=== PATIENT | female | born 1985 | race Caucasian/White ===

== ENCOUNTER 2024-09-18 00:05 | Inpatient (IN) | payer BC ==
[2024-09-18] VITALS (7 sets, daily range): BP systolic 106–137; BP diastolic 53–85; PULSE 62–80; RESP 16–20; TEMP 97.5–98.7; O2SAT 93–100
[~2024-09-18] VITALS: Ht 154.9 cm; Wt 110.0 kg
--- NOTE | 2024-09-18 01:28 | DVHHPRES ---
History of Present Illness Resident Creating Document: MATEUS CHRISTIAN RESIDENT History of Present Illness patient is 38 years old female with past medical history of cholecystectomy was admitted to the [facility] for abdominal pain. As per documentation from the [facility] patient was admitted to the hospital due to abdominal pain that started 1 week before admission. Patient describes the pain as sharp, usually postprandial, 2-3 hours after eating but later on it was right after eating meals. Pain radiated to the back and to bilateral shoulders. Patient also reported vomiting, watery, food content,no blood. Patient also reported having bowel movement on the day of admission. On 09/17/2024 blood workup revealed WBC 9.6, hemoglobin 13, platelet 265, sodium 135, potassium 4, creatinine 0.72, blood sugar 147, bilirubin 2.9, AST 180, ALT 232, alkaline phosphatase 375, Lipase 52.. Urinalysis negative for UTI. Prior admission patient also was seen at the ER day before and found to have transaminitis and ultrasound revealed no CBD blockage. Prior to 1 week before admission bilirubin was 1.9. As per physician document patient was treated for possible cholangitis with antibiotic piperacillin/tazobactam. CT Abdomen & pelvis revealed small hiatal hernia, no acute bowel obstruction or appendicitis/diverticulitis. On Admission today patient reported that she had abdominal pain for 7 days but it got worse on Friday, crampy in nature, 10/10 in severity, increased with taking food, relieved with empty stomach, radiating to the back and shoulder. Patient also endorsed vomiting which was mainly watery content., no blood. Last vomiting was yesterday at 10:00 a.m.. Patient denied any fever, chest pain, shortness of breath, dysuria/diarrhea/acute joint pain or swelling, dysarthria/change in vision or vertigo. Initial lab workup revealed WBC 7.7, hemoglobin 12.0, platelet 235, serum creatinine 176, serum glucose 128, HbA1c 6.5, total bilirubin 2.4, AST 255, ALT 255, alkaline phosphatase 366, TSH 1.51, lipase 36. Past Medical History History of cholecystectomy Family History Mom had thyroid cancer, dad had liver failure Past Social History Patient reports occasional alcoholic, denies smoking or drug abuse, lives at home Review of Systems Review of Systems Allergy- NKDA Personal History/ Social History- Patient was seen today at the bedside. Cardiovascular- deny acute chest pain or shortness of breath or cough or palpitation Respiratory- denies cough or short of breath or wheezing Musculoskeletal-denies acute joint swelling or tenderness or redness Neurological- denies acute dysarthria, dysphagia, change in vision Psychiatry- denies depression or SI or HI Skin- denies acute rash or purpura Allergies: Coded Allergies: NO KNOWN ALLERGIES (Unverified , 09/18/24) Exam Exam General examination- awake, alert, conversant, cooperative HEENT- PEERLA, no acute nasal discharge Cardiovascular- S1-S2 audible, rate and rhythm regular, no murmur Respiratory- CTAB, no wheeze or rhonchi Gastrointestinal-nontender, bowel sound+. Nondistended Musculoskeletal-no acute joint swelling or tenderness or redness# Lower extremity- no leg edema Neurological- cranial nerves intact, no acute dysarthria or dysphagia Psychiatry- denies depression or SI or HI Skin- no acute rash or purpura Assessment/Plan Assessment/Plan #Suspected cholangitis -at [facility] on 09/17/2024- bilirubin 2.9, AST 180, ALT 232, alkaline phosphatase 375, Lipase 52. --at [facility] on 09/18/2024 total bilirubin 2.4, AST 255, ALT 255, alkaline phosphatase 366 -CT abdomen hiatal hernia -continue Zosyn 3.37 5 g IV q.6h -NPO until further order -continue lactate Ringer solution 100 mL/hour -monitor vital #Suspected pancreatitis/gastritis -continue pantoprazole 40 mg IV b.i.d. -monitor vitals #Transaminitis -on 09/18/2024 total bilirubin 2.4, AST 255, ALT 255, alkaline phosphatase 366 -monitor CMP -pending hepatic panel #New onset diabetes mellitus type, -HGB A1c 6.5 -insulin sliding scale as prescribed #Morbide obesity, BMI 46.1 -patient was counseled about weight reduction, healthy diet, physical activity Goals of care/advance care planning; FULL CODE; discussed with the patient >15 minutes PUD prophylaxis: Pantoprazole DVT prophylaxis: Plan discussed with Dr. Joe, nursing staff, patient Total time spent on patient evaluation, chart review, assessment and plan, discussion discussion >30 minutes Plan discussed with: Patient Plan discussed with: Patient, Other (RN) MATEUS CHRISTIAN RESIDENT Sep 18, 2024 01:28
[2024-09-18] MEDS ORDERED: MORPHINE SULFATE INJ 2 MG/ml SYRG IV PRN (01:45)
[2024-09-18] MEDS ORDERED: SODIUM CHLORIDE 0.9% 1,000 ML IV SCH (01:45)
[2024-09-18] MEDS ORDERED: NITROGLYCERIN 0.4 MG SL TAB SL PRN (01:45)
[2024-09-18] MEDS ORDERED: ONDANSETRON HCL 4 MG/2 ML VIAL IV PRN (01:45)
[2024-09-18 03:13] LABS: Basophils # (auto) 0 10 ^3/uL (0-0.2); Basophils % (auto) 0.4 % (0.0-2.0); Eosinophils # (auto) 0.1 10 ^3/uL (0-0.8); Eosinophils % (auto) 1.1 % (0.0-7.0); Hematocrit 35.2 % (36.0-46.0); Lymphocytes # (auto) 1.5 10 ^3/uL (0.4-5.4); Lymphocytes % (auto) 19.5 % (10.0-50.0); Mean Corpuscular Hemoglobin 28.3 pg (28.0-32.0); Mean Corpuscular Volume 83.4 fL (80.0-100.0); Monocytes # (auto) 0.6 10 ^3/uL (0-1.3); Monocytes % (auto) 8.1 % (0.0-12.0); Neutrophils # (auto) 5.4 10 ^3/uL (1.6-8.6); Neutrophils % (auto) 70.9 % (37.0-80.0); Platelet Count (auto) 235 10^3/uL (140-450); Red Blood Cells 4.22 10^6/uL (4.0-5.20); Red Cell Distribution Width 16.7 % (11.8-14.3); White Blood Cell 7.7 10^3/uL (4.4-10.8)
[2024-09-18 03:52] LABS: Albumin 4.4 g/dL (3.2-4.8); Anion Gap 8 (5-15); BUN/Creatinine Ratio 10.5 (10.0-20.0); Blood Alcohol < 3.0 mg/dL (<10); Carbon Dioxide 29 mmol/L (20-31); Chloride 104 mmol/L (98-107); Magnesium 2.2 mg/dL (1.6-2.6); Potassium 3.9 mmol/L (3.5-5.1); Sodium 141 mmol/L (136-145)
[2024-09-18 03:53] LABS: Total Protein 7.2 g/dL (5.7-8.2)
[2024-09-18 03:54] LABS: Alanine Aminotransferase 255 U/L (7-40); Alkaline Phosphatase 366 U/L (46-116); Aspartate Aminotransferase 255 U/L (13-40); Bilirubin, Total 2.4 mg/dL (0.2-1.0); Blood Urea Nitrogen 8 mg/dL (9-23); Glucose 128 mg/dL (74-106)
[2024-09-18] MEDS ORDERED: PNEUMOCOCCAL VACC POLYS 25 MCG/0.5 ML VIAL IM SCH (05:45)
[2024-09-18] MEDS: D5W/SOD CHLO 0.9% 1,000 ML IV SCH (06:04)
[2024-09-18] MEDS: PIPERACILLIN-TAZOB 3.375GM 100 ML IV ONE (06:05)
[2024-09-18] MEDS ORDERED: DEXTROSE (50%) 50ML SYRG IV PRN (06:45)
[2024-09-18 07:10] LABS: Bilirubin, Direct 1.2 mg/dL (<0.3)
[2024-09-18 07:18] LABS: CRP High Sensitivity 0.91 mg/dL (<1.0)
[2024-09-18] MEDS: ACCU-CHEK COMFORT CURVE STRIP VI SCH (07:57)
[2024-09-18] MEDS: InsuLIN REG 1unit/0.01ml Soln (100units/ml) SC SCH (08:00)
[2024-09-18] MEDS: LACTATED RINGER'S 1,000 ML IV SCH (08:05)
[2024-09-18] MEDS: PANTOPRAZOLE 40 MG/10 ML VIAL INJ IV SCH (09:06)
[2024-09-18] MEDS: MORPHINE SULFATE INJ 2 MG/ml SYRG IV PRN (10:35)
[2024-09-18] MEDS: ONDANSETRON HCL 4 MG/2 ML VIAL IV PRN (10:39)
[2024-09-18 10:57] LABS: Albumin 4.6 g/dL (3.2-4.8); Total Protein 7.6 g/dL (5.7-8.2)
[2024-09-18 10:58] LABS: Bilirubin, Direct 1.1 mg/dL (<0.3); Bilirubin, Total 2.5 mg/dL (0.2-1.0)
[2024-09-18 11:39] LABS: Erythrocyte Sedimentation Rate 41 mm/hr (0-20)
--- NOTE | 2024-09-18 12:07 | DVHPNRES ---
Progress Note Date Seen: Sep 18, 2024 Resident Creating Document: CRISTOFER CENTENO RESIDENT Medical Necessity Reason Pt with a Central, PICC or Fol: No Medical Necessity Reason Right abdominal pain associated with food nausea and vomiting Subjective Review of Systems This is a 38 female with a past medical history significant for cholecystectomy in 2018 presented to the ED with right quadrant pain of 1 week's duration. According to the patient she has been experiencing the pain in the right upper abdomen that has been intermittent however since last Friday however it became so severe yesterday September prompting her to visit the ED. Patient initially presented to [facility] however she was referred to [facility] because her primary doctor ( Dr. Garcia) is contracted with [facility]. Patient described the pain as sharp radiating to her back and to the shoulders bilaterally and it usually 2-3 hours postprandial. However, on Friday09/17/2024, the pain came on immediately after eating and it was consistent and unrelenting. it was associated with nausea and an episode of vomiting thus prompting her to go to the ED. Patient denied fever, chills, any possibility ingesting uncooked food or raw meals, , medication overdose or excessive alcohol consumption. In the ED, initial blood work showed Initial lab workup revealed WBC 7.7, hemoglobin 12.0, platelet 235, serum creatinine 176, serum glucose 128, HbA1c 6.5, total bilirubin 2.4, AST 255, ALT 255, alkaline phosphatase 366, TSH 1.51, lipase 36. Review of systems Past Medical History History of cholecystectomy Family History Mom had thyroid cancer, dad had liver failure Past Social History Patient reports occasional alcoholic, denies smoking or drug abuse, lives at home Objective vital signs Vital Sign Date Time Temp Pulse Resp B/P (MAP) Pulse Ox O2 Delivery O2 Flow Rate FiO2 09/18/24 10:35 67 18 106/53 09/18/24 08:54 98.4 100 98.4 09/18/24 08:00 Room Air* 0 21 Total Intake and Output 09/17/24 09/17/24 09/18/24 15:00 23:00 07:00 Intake Total 0 ml Balance 0 ml medications Current Medications Medications Dose Ordered Sig/Vianney Route Start Time Stop Time Status Last Admin Dose Admin Acetaminophen 650 mg Q6HP PRN PO 09/18/24 01:45 Morphine Sulfate 2 mg Q4HPRN PRN IV 09/18/24 01:45 09/18/24 10:35 2 MG Nitroglycerin 0.4 mg Q5MINP PRN SL 09/18/24 01:45 Morphine Sulfate 2 mg Q30M PRN IV 09/18/24 01:45 Pantoprazole Sodium 40 mg BID IV 09/18/24 10:00 09/18/24 09:06 40 MG Ondansetron HCl 4 mg Q4HPRN PRN IV 09/18/24 01:45 09/18/24 10:39 4 MG Piperacillin Sod/ Tazobactam Sod 100 ml @ 25 mls/hr Q6HR IV 09/18/24 12:00 Pneumococcal Polyvalent Vaccine 25 mcg ONCE IM 09/18/24 05:45 Cancel Lactated Ringer's 1,000 ml @ 100 mls/hr Q10H IV 09/18/24 06:30 09/18/24 08:05 100 MLS/HR Diagnostic Test (Pha) 1 strip ACHS 09/18/24 07:00 09/18/24 07:57 1 STRIP Insulin Human Regular ACHS SC 09/18/24 07:00 09/18/24 08:00 2 UNITS Dextrose 50 ml UD PRN IV 09/18/24 06:45 Examination General examination- morbidly obese female, not in acute distress,with a tinge of scleral icterus HEENT: PEERLA, no acute nasal discharge Chest: S1-S2 audible, rate and rhythm regular, no murmur Lung: CTAB, no wheeze or rhonchi Abdomen: surgical scar in the right upper quadrant from the cholecystectomy, distend, BS+, tenderness in right quadrant: no organomegaly Musculoskeletal: no acute joint swelling or tenderness Lower extremity: no leg edema Neurological: cranial nerves intact, no acute dysarthria or dysphagia Psychiatry-- Normal mood and affect Skin- no acute rash or purpura laboratory and microbiology Laboratory Tests 09/18/24 02:14 Test 09/18/24 02:14 Range/Units Serum Glucose 128 H 74-106 mg/dL Labs and/or images reviewed: Labs reviewed by me, Image(s) reviewed by me Problem List/Assessment/Plan Problem List/Assessment/Plan Right upper quadrant pain with transaminitis --> History of cholecystectomy in 2019 -->Drea 2.4-->2.5 --> Rule out strictures vs choledocholithiasis vs tumors --> Protonix --> Get MRCP ---> Surgical consult ?? Possible Cholangitis --> But no fevers, WBCs --> elevated liver enzymes --> Continue Zosyn for now New onset diabetes mellitus type 2 --> hemoglobin A1c: 6.5 % --> Lifestyle modification discussed Morbid obesity, BMI 46.1 --->patient was counseled about weight reduction, healthy diet, physical activity Code status: Full Goal of care discussed for 20 minutes Case and plan discussed with Dr. Tristan Plan discussed with: Patient, Other (Nurse) Addendum Addendum Addendum I was physically present for the miranda portions of the service provided to patient by THE RESIDENT. I have reviewed the documentation, discussed the case with resident and agree with the resident's documentation except as noted. Also the patient's clinical case was discussed with the patient's nurse. This medical document was created using an electronic medical record system with computerized dictation system. Although this document has been carefully reviewed, there might still be some phonetic and typographical errors. These areas are purely typographical due to imperfections of the software programs, and do not reflect any compromise in the patient's medical care. Late signature. Date of Service: Sep 18, 2024 Billing Provider: SAMEER TRISTAN MD Common Visit Codes: [id number] INP/OBS CARE(HIGH) Secondary Visit Codes: [id number] CARE PLAN 30 MINUTES (20 minutes) CRISTOFER CENTENO RESIDENT Sep 18, 2024 12:07 SAMEER TRISTAN MD Sep 20, 2024 04:34
[2024-09-18] MEDS: PIPERACILLIN-TAZOB 3.375GM 100 ML IV SCH (12:35)
--- NOTE | 2024-09-18 21:11 | DVHINCON2 ---
DATE OF CONSULTATION: 09/18/2024 REQUESTING PROVIDER: Dr. Can CONSULTING PHYSICIAN: Antonio Estrada MD REASON FOR CONSULTATION: Elevated LFTs, rule out cholangitis. HISTORY OF PRESENT ILLNESS: The patient is a 38-year-old female who went to the Emergency Department of [facility] with chief complaint of right upper quadrant abdominal pain. Initially stated it is mostly postprandial; however, she has pain without eating. Admitted to icteric sclerae, jaundice and choluria. Denies fevers, chills, hemoptysis, hematemesis, bilious emesis, chest pain, shortness of breath, unintentional weight loss, night sweats, melena or hematochezia. PAST MEDICAL HISTORY: Significant for morbid obesity. PAST SURGICAL HISTORY: , bilateral tubal ligation and laparoscopic converted to open cholecystectomy. MEDICATIONS: Denies. ALLERGIES: No known drug allergies. SOCIAL HISTORY: Denies smoking cigarettes, drug use, marijuana use or vaping. Admits to occasional use of alcohol. FAMILY HISTORY: Noncontributory. REVIEW OF SYSTEMS: NEUROLOGIC: Negative. PSYCHIATRIC: Negative. ENDOCRINE: Negative. ENT: As above. CARDIOVASCULAR: Negative. PULMONARY: Negative. GASTROINTESTINAL: As above. GENITOURINARY: As above. HEME/ID: Negative. LYMPHATICS: Negative. MUSCULOSKELETAL: Negative. SKIN: As above. PHYSICAL EXAMINATION: GENERAL: She is lying comfortably in bed, calm, pleasant and in no distress. She is morbidly obese. She is afebrile with stable vital signs. NEUROLOGIC: Grossly intact, alert, awake, oriented x3. HEAD, EARS, EYES, NOSE AND THROAT: Normocephalic. Pupils equally round. Extraocular muscles intact. Mild icteric sclerae. Trachea is midline. HEART: Normal heart rate and blood pressure. LUNGS: Effortless breathing. Normal oxygen saturation and respiratory rate. ABDOMEN: Soft, morbidly obese, nondistended with very minimal epigastric and right upper quadrant tenderness. No peritoneal signs, rebound. Nieto sign negative. Unsightly, very large right upper quadrant/subcostal scar. No palpable masses, hernias or visceromegaly. Body habitus hinders examination. EXTREMITIES: No edema or tenderness. LABORATORY DATA: Review of her labs demonstrated white blood cell count 7.7, hemoglobin 12, hematocrit 35, platelets 235. Chemistry essentially unremarkable with exception of glucose 128. Elevated LFTs. Ultrasound Rafael Capo reviewed. Evidence of cholecystectomy. Common bile duct measured 5.[address] scan did not reveal any acute inflammatory changes, status post cholecystectomy. ASSESSMENT: A 38-year-old female with right upper quadrant abdominal pain and elevated LFTs. Doubt cholangitis. PLANS AND RECOMMENDATIONS: I had a very lengthy discussion with the patient. I have recommended MRCP with and without contrast to rule out choledocholithiasis, stricture, neoplasm. If no evidence of obstructive disease, patient will require endoscopic ultrasound, which is not available in the area. The patient will have to be transferred to a tertiary care facility. If obstructive process is documented, patient will require an ERCP, therefore, will have to be transferred to a facility where ERCP is provided. Recommend empiric antibiotic coverage. DVT and GI prophylaxis. The patient may resume a diet after MRCP unless obstructive disease is identified. No surgical intervention is indicated or warranted at this time. Thank you for allowing me to participate in the care of your patient. No surgical intervention is anticipated. I will follow the patient periodically. MD TERESA Melvin/ANNALEE/JORGE TID: [id number] RECEIPT: [id number] MTDIvonne
[2024-09-19 01:00] VITALS: BP 116/57; PULSE 70; RESP 20; TEMP 97.9; O2SAT 93
[2024-09-19 05:00] VITALS: BP 105/48; PULSE 63; RESP 18; TEMP 97.9; O2SAT 89
[2024-09-19 06:09] LABS: Albumin 4.3 g/dL (3.2-4.8); Anion Gap 11 (5-15); BUN/Creatinine Ratio 16.2 (10.0-20.0); Blood Urea Nitrogen 11 mg/dL (9-23); Calcium 9.6 mg/dL (8.7-10.4); Carbon Dioxide 24 mmol/L (20-31); Chloride 105 mmol/L (98-107); Glucose 93 mg/dL (74-106); Potassium 3.8 mmol/L (3.5-5.1); Sodium 140 mmol/L (136-145)
[2024-09-19 06:10] LABS: Basophils # (auto) 0 10 ^3/uL (0-0.2); Basophils % (auto) 0.6 % (0.0-2.0); Eosinophils # (auto) 0.2 10 ^3/uL (0-0.8); Hematocrit 36.3 % (36.0-46.0); Hemoglobin 12.1 g/dL (12.2-16.2); Lymphocytes % (auto) 24.4 % (10.0-50.0); Mean Corpuscular Hemoglobin 28.4 pg (28.0-32.0); Mean Corpuscular Hgb Conc. 33.2 g/dL (32.0-36.0); Mean Corpuscular Volume 85.3 fL (80.0-100.0); Monocytes # (auto) 0.5 10 ^3/uL (0-1.3); Monocytes % (auto) 6.3 % (0.0-12.0); Neutrophils # (auto) 5.4 10 ^3/uL (1.6-8.6); Neutrophils % (auto) 66.7 % (37.0-80.0); Nucleated Red Blood Cells % 0.2 %; Platelet Count (auto) 221 10^3/uL (140-450); Red Blood Cells 4.25 10^6/uL (4.0-5.20); Red Cell Distribution Width 17.4 % (11.8-14.3); Total Protein 7.2 g/dL (5.7-8.2)
[2024-09-19 06:19] LABS: Alanine Aminotransferase 175 U/L (7-40); Alkaline Phosphatase 330 U/L (46-116); Aspartate Aminotransferase 71 U/L (13-40); Bilirubin, Total 1.8 mg/dL (0.2-1.0)
--- NOTE | 2024-09-19 07:55 | DVHPN2 ---
Progress Note Date Seen: Sep 19, 2024 Has the PT tested + for MRSA If YES, has PT been informed?: No Medical Necessity Reason Pt with a Central, PICC or Fol: No Subjective Review of Systems Pt feels well. Only complains of mild pressure in epigastric region. Objective vital signs Vital Sign Date Time Temp Pulse Resp B/P (MAP) Pulse Ox O2 Delivery O2 Flow Rate FiO2 09/19/24 05:00 97.9 63 18 105/48 (67) 89 97.9 09/18/24 20:00 Room Air* 0 21 Total Intake and Output 09/18/24 09/18/24 09/19/24 15:00 23:00 07:00 Intake Total 800 ml 100 ml Output Total 0 ml Balance 800 ml 100 ml medications Current Medications Medications Dose Ordered Sig/Vianney Route Start Time Stop Time Status Last Admin Dose Admin Acetaminophen 650 mg Q6HP PRN PO 09/18/24 01:45 Morphine Sulfate 2 mg Q4HPRN PRN IV 09/18/24 01:45 09/18/24 10:35 2 MG Nitroglycerin 0.4 mg Q5MINP PRN SL 09/18/24 01:45 Morphine Sulfate 2 mg Q30M PRN IV 09/18/24 01:45 Pantoprazole Sodium 40 mg BID IV 09/18/24 10:00 09/18/24 09:06 40 MG Ondansetron HCl 4 mg Q4HPRN PRN IV 09/18/24 01:45 09/18/24 10:39 4 MG Piperacillin Sod/ Tazobactam Sod 100 ml @ 25 mls/hr Q6HR IV 09/18/24 12:00 09/19/24 06:15 25 MLS/HR Pneumococcal Polyvalent Vaccine 25 mcg ONCE IM 09/18/24 05:45 Cancel Lactated Ringer's 1,000 ml @ 100 mls/hr Q10H IV 09/18/24 06:30 09/18/24 08:05 100 MLS/HR Diagnostic Test (Pha) 1 strip ACHS 09/18/24 07:00 09/19/24 06:38 1 STRIP Insulin Human Regular ACHS SC 09/18/24 07:00 09/18/24 08:00 2 UNITS Dextrose 50 ml UD PRN IV 09/18/24 06:45 Examination Abdomen soft, ND and NT laboratory and microbiology Laboratory Tests 09/19/24 05:27 Test 09/19/24 05:27 Range/Units Serum Glucose 93 74-106 mg/dL Microbiology Date/Time Source Procedure Growth Status 09/18/24 02:56 Blood Blood Culture - Preliminary NO GROWTH AFTER 24 HOURS OF INCUBATION. Resulted Labs and/or images reviewed: Labs reviewed by me Problem List/Assessment/Plan Problems(with codes): (1) Elevated LFTs Problem List/Assessment/Plan Pending MRCP with and without contrast to rule out choledocholithiasis, stricture and/or neoplasm. If no evidence of obstructive disease, patient will require endoscopic ultrasound, which is not available in this area. The patient will have to be transferred to a tertiary care facility, if needs EUS. However,if obstructive process is evident on MRCP, she will require an ERCP, in which case, she will have to be transferred to a facility where ERCP services are provided. Continue empiric antibiotic coverage against cholangitis. Recommend DVT and GI prophylaxis. The patient may resume a diet after MRCP unless obstructive disease is identified. No surgical intervention is indicated or warranted at this time. Plan discussed with: Patient My Orders My Orders Orders - DEBI ENRIQUE MD Procedure Category Date Status Time Mrcp Mri MRI 09/18/24 Logged 16:37 DEBI ENRIQUE MD Sep 19, 2024 07:55
[2024-09-19 09:00] VITALS: BP 115/63; PULSE 65; RESP 15; TEMP 97.7; O2SAT 93
[2024-09-19 09:00] LABS: Urine Bacteria None Seen /hpf (None Seen)
[2024-09-19 09:20] LABS: Amphetamine Screen, Urine Neg (NEGATIVE); Barbiturate Scree,Urine Neg (NEGATIVE); Benzodiazephine Screen, Urine Neg (NEGATIVE); Cocaine Screen, Urine Neg (NEGATIVE); Opiate Scree,Urine Neg (NEGATIVE)
[2024-09-19 09:21] LABS: Cannabinoid Screen, Urine Neg (NEGATIVE); Phencyclidine Screen, Urine Neg (NEGATIVE)
[2024-09-19 09:23] LABS: Urine Blood Negative /uL (Negative); Urine Clarity Turbid (Clear); Urine Color Yellow (Yellow); Urine Mucus FEW (None Seen); Urine Protein, UAD 1+ (Negative); Urine Specific Gravity 1.035 (1.001-1.035); Urine Urobilinogen Normal (Negative); Urine WBC 4 /hpf (0 - 5); Urine pH 5.5 (5.0-9.0)
[2024-09-19 13:00] VITALS: BP 102/64; PULSE 65; RESP 17; TEMP 98; O2SAT 94
--- NOTE | 2024-09-19 13:23 | DVHPNRES ---
Progress Note Date Seen: Sep 19, 2024 Resident Creating Document: LAYLA ALVES RESIDENT Has the PT tested + for MRSA If YES, has PT been informed?: No Medical Necessity Reason Pt with a Central, PICC or Fol: No Subjective Review of Systems Patient was seen and examined at bedside. She stated improvement on abdominal pain, denied any nausea, vomiting, chest pain, shortness of breath. Pending MRCP with and without contrast. LFTs are trending now. Continue NPO Objective vital signs Vital Sign Date Time Temp Pulse Resp B/P (MAP) Pulse Ox O2 Delivery O2 Flow Rate FiO2 09/19/24 05:00 97.9 63 18 105/48 (67) 89 97.9 09/18/24 20:00 Room Air* 0 21 Total Intake and Output 09/18/24 09/18/24 09/19/24 15:00 23:00 07:00 Intake Total 800 ml 100 ml Output Total 0 ml Balance 800 ml 100 ml medications Current Medications Medications Dose Ordered Sig/Vianney Route Start Time Stop Time Status Last Admin Dose Admin Acetaminophen 650 mg Q6HP PRN PO 09/18/24 01:45 Morphine Sulfate 2 mg Q4HPRN PRN IV 09/18/24 01:45 09/18/24 10:35 2 MG Nitroglycerin 0.4 mg Q5MINP PRN SL 09/18/24 01:45 Morphine Sulfate 2 mg Q30M PRN IV 09/18/24 01:45 Pantoprazole Sodium 40 mg BID IV 09/18/24 10:00 09/19/24 10:24 40 MG Ondansetron HCl 4 mg Q4HPRN PRN IV 09/18/24 01:45 09/18/24 10:39 4 MG Piperacillin Sod/ Tazobactam Sod 100 ml @ 25 mls/hr Q6HR IV 09/18/24 12:00 09/19/24 12:17 25 MLS/HR Pneumococcal Polyvalent Vaccine 25 mcg ONCE IM 09/18/24 05:45 Cancel Lactated Ringer's 1,000 ml @ 100 mls/hr Q10H IV 09/18/24 06:30 09/19/24 12:31 100 MLS/HR Diagnostic Test (Pha) 1 strip ACHS 09/18/24 07:00 09/19/24 11:30 1 STRIP Insulin Human Regular ACHS SC 09/18/24 07:00 09/18/24 08:00 2 UNITS Dextrose 50 ml UD PRN IV 09/18/24 06:45 Examination General: Awake, alert, comfortable appearing, in no acute distress. HEENT: Head is normocephalic and atraumatic. Pupils are equal, round, and reactive to light. Extraocular muscles are intact. No nasal discharge. No facial trauma. Intraoral exam shows moist mucous membranes with no tonsillar enlargement or exudate. Neck: Supple with no cervical lymphadenopathy No meningismus. No goiter. Heart: Regular rate without murmur, rub, or gallop. Lungs: Equal breath sounds bilaterally with no wheezing, rales, or rhonchi. There is no chest wall tenderness or instability. Abdomen: No external sign of injury. Bowel sounds are present. Abdomen is soft, nontender. No rebound, no guarding, no rigidity. There are no palpable masses.s urgical scar in the right upper quadrant from the cholecystectomy, distend, BS+, Extremities: Strong peripheral pulses. There is no clubbing, no cyanosis, and no edema. Skin: No rash. Neurologic: Cranial nerves II-XII intact without motor, sensory, or cerebellar deficit, no asterixis. laboratory and microbiology Laboratory Tests 09/19/24 05:27 Test 09/19/24 05:27 Range/Units Serum Glucose 93 74-106 mg/dL Microbiology Date/Time Source Procedure Growth Status 09/18/24 02:56 Blood Blood Culture - Preliminary NO GROWTH AFTER 24 HOURS OF INCUBATION. Resulted Labs and/or images reviewed: Labs reviewed by me, Image(s) reviewed by me Problem List/Assessment/Plan Problem List/Assessment/Plan Right upper quadrant pain with transaminitis, rule out cholangitis, choledocholithiasis, mass --> History of cholecystectomy in 2019 -->T.Bill 2.4-->2.5 --> Rule out strictures vs choledocholithiasis vs tumors --> continue Protonix --> pending MRCP -->Continue NPO ---> Surgey onboard ?? Possible Cholangitis --> But no fevers, WBCs --> elevated liver enzymes --> Continue Zosyn for now New onset diabetes mellitus type 2 --> hemoglobin A1c of 6.5 % --> Lifestyle modification discussed Morbid obesity, BMI 46.1 --->patient was counseled about weight reduction, healthy diet, physical activity Case and plan discussed with Dr. Tristan Plan discussed with: Patient, Other (RN) My Orders My Orders Orders - LAYLA ALVES RESIDENT Procedure Category Date Status Time Hemoglobin & LAB 09/20/24 Verified Hematocrit 04:00 Comprehensive LAB 09/20/24 Verified Metabolic Panel 04:00 Addendum Addendum Addendum I was physically present for the miranda portions of the service provided to patient by THE RESIDENT. I have reviewed the documentation, discussed the case with resident and agree with the resident's documentation except as noted. Also the patient's clinical case was discussed with the patient's nurse. This medical document was created using an electronic medical record system with computerized dictation system. Although this document has been carefully reviewed, there might still be some phonetic and typographical errors. These areas are purely typographical due to imperfections of the software programs, and do not reflect any compromise in the patient's medical care. Late signature. Date of Service: Sep 19, 2024 Billing Provider: SAMEER TRISTAN MD Common Visit Codes: [id number] INP/OBS CARE(HIGH) LAYLA ALVES RESIDENT Sep 19, 2024 13:23 SAMEER TRISTAN MD Sep 20, 2024 04:37
--- NOTE | 2024-09-19 14:17 | DVH ---
MRI Abdomen, Pre and Post Contrast Exam Date: 09/19/2024 10:52 AM Comparison: None History: R/O STONE VS STRICTURE VS TUMOR Technique: Multiplanar MRI of the abdomen with and without intravenous contrast. The following sequences were o btained: Coronal T2; axial T2 with and without fat saturation; MRCP radial T2 haste ; axial DWI/ADC; precontrast axial and coronal T1; postcontrast coronal T1 ; postcontrast axial T1 in arterial, venous , and delayed phases. 20 mL of Clariscan was administered intravenously during this examination. Initial imaging is obtain ed without intravenous contrast. Findings: Liver: The liver is normal in size without focal lesions. Normal liver contour. Spleen: Unremarkable. Pancreas: The pancreas is normal in appearance without focal lesions. Gallbladder and ducts: Small/contracted gallbladder versus small gallbladder remnant. The common bile duct measures up to 7 mm in diameter and the common hepatic duct measures up to 9 mm. In the mid CBD there is an ovoid filling defect measuring up to 5 mm, best appreciated on the radial MRCP sequence. Adrenal glands: Unremarkable. Kidneys: Normal enhancement without suspicious lesions or hydronephrosis. Visualized bowel: There is a 7 mm nodule projecting into the duodenal lumen near the ampulla of Vater with suggestion of associated enhancement (series 5, image 27; series 12, image 63) ; however, when compared with coronal images this could represent artifact. Appendix is seen on the coronal postcontr ast T1 sequence and appears within normal limits. No evidence of bowel dilation. Vasculature: Unremarkable. Lymphadenopathy: No evidence for lymphadenopathy. Musculoskeletal: Bone marrow signal is normal. IMPRESSION: 1. Ovoid 5 mm filling defect within the mid CBD may represent choledocholithiasis. Mild associated bi liary ductal dilatation. 2. Small/contracted gallbladder versus gallbladder remnant. Recommend correlation with surgical hist ory. 3. There is a 7 mm nodule projecting into the duodenum near the ampulla of Vater. This is favored to represent artifact when compared with coronal sequences; however, an underlying lesion is difficult t o exclude entirely. Consider direct visualization.
[2024-09-19 17:00] VITALS: BP 125/77; PULSE 69; RESP 17; TEMP 98.1; O2SAT 94
[2024-09-20 01:00] VITALS: BP 112/56; PULSE 74; RESP 17; TEMP 98.2; O2SAT 95
[2024-09-20 05:00] VITALS: BP 105/50; PULSE 56; RESP 17; TEMP 98.3; O2SAT 98
--- NOTE | 2024-09-20 06:16 | DVHPN2 ---
Progress Note Date Seen: Sep 20, 2024 Has the PT tested + for MRSA If YES, has PT been informed?: No Medical Necessity Reason Pt with a Central, PICC or Fol: No Subjective Review of Systems Pt feels well. Denies N/V or abdominal pain. Tolerated CLD. Objective vital signs Vital Sign Date Time Temp Pulse Resp B/P (MAP) Pulse Ox O2 Delivery O2 Flow Rate FiO2 09/20/24 01:00 98.2 74 17 112/56 (74) 95 98.2 09/19/24 20:00 Room Air* 0 21 Total Intake and Output 09/19/24 09/19/24 09/20/24 15:00 23:00 07:00 Intake Total 100 ml Balance 100 ml medications Current Medications Medications Dose Ordered Sig/Vianney Route Start Time Stop Time Status Last Admin Dose Admin Acetaminophen 650 mg Q6HP PRN PO 09/18/24 01:45 Morphine Sulfate 2 mg Q4HPRN PRN IV 09/18/24 01:45 09/18/24 10:35 2 MG Nitroglycerin 0.4 mg Q5MINP PRN SL 09/18/24 01:45 Morphine Sulfate 2 mg Q30M PRN IV 09/18/24 01:45 Pantoprazole Sodium 40 mg BID IV 09/18/24 10:00 09/19/24 21:43 40 MG Ondansetron HCl 4 mg Q4HPRN PRN IV 09/18/24 01:45 09/18/24 10:39 4 MG Piperacillin Sod/ Tazobactam Sod 100 ml @ 25 mls/hr Q6HR IV 09/18/24 12:00 09/19/24 23:55 25 MLS/HR Pneumococcal Polyvalent Vaccine 25 mcg ONCE IM 09/18/24 05:45 Cancel Lactated Ringer's 1,000 ml @ 100 mls/hr Q10H IV 09/18/24 06:30 09/19/24 21:40 100 MLS/HR Diagnostic Test (Pha) 1 strip ACHS 09/18/24 07:00 09/19/24 21:40 1 STRIP Insulin Human Regular ACHS SC 09/18/24 07:00 09/18/24 08:00 2 UNITS Dextrose 50 ml UD PRN IV 09/18/24 06:45 Examination AFVSS. Abdomen soft, ND and NT. MRCP positive for choledocholithiasis. Possible GB remnant. laboratory and microbiology Laboratory Tests 09/19/24 05:27 Test 09/19/24 05:27 Range/Units Serum Glucose 93 74-106 mg/dL Microbiology Date/Time Source Procedure Growth Status 09/18/24 23:22 Nose MRSA Screen - Final Complete 09/18/24 02:56 Blood Blood Culture - Preliminary NO GROWTH AFTER 48 HOURS OF INCUBATION. Resulted Labs and/or images reviewed: Labs reviewed by me Problem List/Assessment/Plan Problems(with codes): (1) Choledocholithiasis (2) Elevated LFTs Problem List/Assessment/Plan MRCP positive for sholedocholithiasis. Incidental finding of possible GB remnant. Pt made aware.She will require an ERCP. Therefore, transfer to a facility where ERCP services are provided. Closest facility with ERCP svcs is [facility]. Continue empiric antibiotic, coverage against cholangitis. DVT and GI prophylaxis.Advance to low fat diet and assess tolerance and symptoms. If becomes symptomatic, resume CLD. No surgical intervention is indicated or warranted at this time. Plan discussed with: Patient (RN last night) My Orders My Orders Orders - DEBI ENRIQUE MD Procedure Category Date Status Time Clear Liq Diet DIET 09/20/24 Transmitted Breakfast DEBI ENRIQUE MD Sep 20, 2024 06:16
[2024-09-20 06:56] LABS: Albumin 4.3 g/dL (3.2-4.8); Anion Gap 8 (5-15); Aspartate Aminotransferase 33 U/L (13-40); BUN/Creatinine Ratio 13.4 (10.0-20.0); Blood Urea Nitrogen 9 mg/dL (9-23); Calcium 9.5 mg/dL (8.7-10.4); Carbon Dioxide 26 mmol/L (20-31); Chloride 104 mmol/L (98-107); Glucose 76 mg/dL (74-106); Potassium 3.7 mmol/L (3.5-5.1); Sodium 138 mmol/L (136-145)
[2024-09-20 06:58] LABS: Alanine Aminotransferase 122 U/L (7-40); Alkaline Phosphatase 263 U/L (46-116); Bilirubin, Total 1.7 mg/dL (0.2-1.0)
[2024-09-20 07:07] LABS: Hematocrit 33.7 % (36.0-46.0); Hemoglobin 11.4 g/dL (12.2-16.2)
[2024-09-20] MEDS: GADOTERATE MEG 10 MMOL/20ml INJ (0.5MMOL/ml) IV ONE (08:28)
[2024-09-20 09:00] VITALS: BP 126/67; PULSE 72; RESP 16; TEMP 98.2; O2SAT 95
[2024-09-20 09:51] LABS: Hepatitis B Core Total AB Negative (Negative)
[2024-09-20 11:51] LABS: Hepatitis B Surface Antigen Negative (Negative)
[2024-09-20 11:52] LABS: Hepatitis C Antibody Negative (Negative)
[2024-09-20 11:53] LABS: Hepatitis A Total Antibody Negative (Negative); Hepatitis B Surface Antibody Positive (Negative)
[2024-09-20] MEDS: PNEUMOCOCCAL VACC POLYS 25 MCG/0.5 ML VIAL IM ONE (12:11)
[2024-09-20 12:57] VITALS: BP 120/71; PULSE 78; RESP 16; TEMP 97.7; O2SAT 91
[2024-09-20] MEDS: INFLUENZA TRIVALENT 2024-2025 0.5 ML INJ IM ONE (13:09)
[2024-09-20] MEDS: ACETAMINOPHEN 325 MG TAB PO PRN (13:11)
[2024-09-20 17:00] VITALS: BP 133/80; PULSE 100; RESP 19; TEMP 98; O2SAT 90
--- NOTE | 2024-09-20 17:08 | DVHDSRES ---
Discharge Summary Date of Admission Resident Creating Document: CRISTOFER CENTENO RESIDENT Sep 18, 2024 at 00:05 Date of Discharge: Sep 20, 2024 Admitting Diagnosis Right upper quadrant pain history of cholecystectomy Labs/Diagnostic Data: Laboratory Results Test 09/20/24 11:25 09/20/24 05:52 09/19/24 08:30 09/19/24 05:27 POC Glucose 132 mg/dl (70-106) Hemoglobin 11.4 g/dL (12.2-16.2) Hematocrit 33.7 % (36.0-46.0) Sodium Level 138 mmol/L (136-145) Potassium Level 3.7 mmol/L (3.5-5.1) Chloride Level 104 mmol/L (98-107) Carbon Dioxide Level 26 mmol/L (20-31) Anion Gap 8 (5-15) Blood Urea Nitrogen 9 mg/dL (9-23) Creatinine 0.67 mg/dL (0.550-1.02) Glomerular Filtration Rate Calc 114 mL/min (>90) BUN/Creatinine Ratio 13.4 (10.0-20.0) Serum Glucose 76 mg/dL (74-106) Calcium Level 9.5 mg/dL (8.7-10.4) Total Bilirubin 1.7 mg/dL (0.2-1.0) Aspartate Amino Transferase (AST) 33 U/L (13-40) Alanine Aminotransferase (ALT) 122 U/L (7-40) Alkaline Phosphatase 263 U/L (46-116) Total Protein 7.0 g/dL (5.7-8.2) Albumin 4.3 g/dL (3.2-4.8) Urine Color Yellow (Yellow) Urine Clarity Turbid (Clear) Urine pH 5.5 (5.0-9.0) Urine Specific [place] 1.035 (1.001-1.035) Urine Protein 1+ (Negative) Urine Ketones 3+ (Negative) Urine Blood Negative /uL (Negative) Urine Nitrite Negative (Negative) Urine Bilirubin Negative (Negative) Urine Urobilinogen Normal mg/dL (Negative) Urine Leukocyte Esterase Negative /uL (Negative) Urine RBC 8 /hpf (0 - 4) Urine WBC 4 /hpf (0 - 5) Urine Squamous Epithelial Cells Few /hpf (<5) Urine Bacteria None seen /hpf (None Seen) Urine Mucus Few (None Seen) Urine Glucose Normal mg/dL (Normal) Urine Opiates Screen Neg (NEGATIVE) Urine Fentanyl Screen Neg (NEGATIVE) Urine Barbiturates Screen Neg (NEGATIVE) Urine Phencyclidine Screen Neg (NEGATIVE) Urine Amphetamines Screen Neg (NEGATIVE) Urine Benzodiazepines Screen Neg (NEGATIVE) Urine Cocaine Screen Neg (NEGATIVE) Urine Cannabinoids Screen Neg (NEGATIVE) White Blood Count 8.0 10^3/uL (4.4-10.8) Red Blood Count 4.25 10^6/uL (4.0-5.20) Mean Corpuscular Volume 85.3 fL (80.0-100.0) Mean Corpuscular Hemoglobin 28.4 pg (28.0-32.0) Mean Corpuscular Hemoglobin Concent 33.2 g/dL (32.0-36.0) Red Cell Distribution Width 17.4 % (11.8-14.3) Platelet Count 221 10^3/uL (140-450) Mean Platelet Volume 8.5 fL (6.9-10.8) Neutrophils (%) (Auto) 66.7 % (37.0-80.0) Lymphocytes (%) (Auto) 24.4 % (10.0-50.0) Monocytes (%) (Auto) 6.3 % (0.0-12.0) Eosinophils (%) (Auto) 2.0 % (0.0-7.0) Basophils (%) (Auto) 0.6 % (0.0-2.0) Neutrophils # (Auto) 5.4 10 ^3/uL (1.6-8.6) Lymphocytes # (Auto) 2.0 10 ^3/uL (0.4-5.4) Monocytes # (Auto) 0.5 10 ^3/uL (0-1.3) Eosinophils # (Auto) 0.2 10 ^3/uL (0-0.8) Basophils # (Auto) 0 10 ^3/uL (0-0.2) Nucleated Red Blood Cells 0.2 % Test 09/18/24 09:48 09/18/24 02:14 Erythrocyte Sedimentation Rate 41 mm/hr (0-20) Lactic Acid Level 1.0 mmol/L (0.4-2.0) Direct Bilirubin 1.1 mg/dL (<0.3) Hemoglobin A1c 6.5 % A1C (<5.7) Magnesium Level 2.2 mg/dL (1.6-2.6) C-Reactive Protein High Sensitivity 0.91 mg/dL (<1.0) Lipase 36 U/L (12-53) Thyroid Stimulating Hormone (TSH) 1.51 uIU/mL (0.55-4.78) Plasma/Serum Blood Alcohol < 3.0 mg/dL (<10) Hepatitis A Antibody Total Negative (Negative) Hepatitis B Surface Antigen Negative (Negative) Hepatitis B Surface Antibody Positive (Negative) Hepatitis B Core Total Antibody Negative (Negative) Hepatitis C Antibody Negative (Negative) Other Laboratory Tests 09/20/24 05:52 09/19/24 05:27 Brief Hx & Hospital Course: This 38 year old female with a past medical history of morbid obesity and surgical history of open cholecystectomy in 2019 presented to the ED with right quadrant pain of 1 week's duration. Pain was initially 2 hours post prandial and then became immediate post-prandial with associated with nausea and an episode of vomiting and radiated to the back and her shoulders. Patient initially reported to [facility] for treatment; however, she was referred to [facility] because her primary doctor is contracted with [facility]. Patient denied fever, chills, any possibility ingesting uncooked food or raw meals, medication overdose or excessive alcohol consumption. Initial blood work showed WBC 7.7, hemoglobin 12.0, platelet 235, serum creatinine 176, serum glucose 128, HbA1c 6.5, total bilirubin 2.4, AST 255, ALT 255, alkaline phosphatase 366, TSH 1.51, lipase 36. MRCP showed an void 5 mm filling defect within the mid CBD may represent choledocholithiasis. Mild associated biliary ductal dilatation. Small/contracted gallbladder versus gallbladder remnant. Examination General: Awake, alert, comfortable appearing, in no acute distress. HEENT: Head is normocephalic and atraumatic. Pupils are equal, round, and reactive to light. Extraocular muscles are intact. No nasal discharge. No facial trauma. Intraoral exam shows moist mucous membranes with no tonsillar enlargement or exudate. Neck: Supple with no cervical lymphadenopathy No meningismus. No goiter. Heart: Regular rate without murmur, rub, or gallop. Lungs: Equal breath sounds bilaterally with no wheezing, rales, or rhonchi. There is no chest wall tenderness or instability. Abdomen: No external sign of injury. Bowel sounds are present. Abdomen is soft.No rebound, no guarding, no rigidity. There are no palpable masses.surgical scar in the right upper quadrant from the cholecystectomy, distend, BS+, Extremities: Strong peripheral pulses. There is no clubbing, no cyanosis, and no edema. Skin: No rash. Neurologic: Cranial nerves II-XII intact without motor, sensory, or cerebellar deficit, no asterixis. Diagnses Choledocholithiasis Ruled out cholangitis Morbid obesity New onset Diabetes Transaminitis Code status: Full The plan at this moment is to transfer patient to a higher level of care for ERCP. We received a call from [facility]. Likely patient will be going here for ERCP. Case and plan discussed with Dr. Martin. Operations or Procedures PATIENT: JULIO SOLANO TACCT: [id number] UNIT: [id number] : 1985 LOC: CENTRAL ROOM / BED: 0217 / A AGE / SEX: 38 / F ADM STATUS: ADM IN SERVICE 0000 ORDERING PHYSICIAN: ALICJA BORDEN MD PROCEDURE(s): MRABWWO - MRI ABDOMEN W AND WO REASON: R/O STONE VS STRICTURE VS TUMOR ORDER NUMBER(s): [id number], ACCESSION NUMBER(s): [id number] MRI Abdomen, Pre and Post Contrast Exam Date: 09/19/2024 10:52 AM Comparison: None History: R/O STONE VS STRICTURE VS TUMOR Technique: Multiplanar MRI of the abdomen with and without intravenous contrast. The following sequences were obtained: Coronal T2; axial T2 with and without fat saturation; MRCP radial T2 haste ; axial DWI/ADC; precontrast axial and coronal T1; postcontrast coronal T1 ; postcontrast axial T1 in arterial, venous, and delayed phases. 20 mL of Clariscan was administered intravenously during this examination. Initial imaging is obtained without intravenous contrast. Findings: Liver: The liver is normal in size without focal lesions. Normal liver contour. Spleen: Unremarkable. Pancreas: The pancreas is normal in appearance without focal lesions. Gallbladder and ducts: Small/contracted gallbladder versus small gallbladder remnant. The common bile duct measures up to 7 mm in diameter and the common hepatic duct measures up to 9 mm. In the mid CBD there is an ovoid filling defect measuring up to 5 mm, best appreciated on the radial MRCP sequence. Adrenal glands: Unremarkable. Kidneys: Normal enhancement without suspicious lesions or hydronephrosis. Visualized bowel: There is a 7 mm nodule projecting into the duodenal lumen near the ampulla of Vater with suggestion of associated enhancement (series 5, image 27; series 12, image 63) ; however, when compared with coronal images this could represent artifact. Appendix is seen on the coronal postcontrast T1 sequence and appears within normal limits. No evidence of bowel dilation. Vasculature: Unremarkable. Lymphadenopathy: No evidence for lymphadenopathy. Musculoskeletal: Bone marrow signal is normal. IMPRESSION: 1. Ovoid 5 mm filling defect within the mid CBD may represent choledocholithiasis. Mild associated biliary ductal dilatation. 2. Small/contracted gallbladder versus gallbladder remnant. Recommend correlation with surgical history. 3. There is a 7 mm nodule projecting into the duodenum near the ampulla of Vater. This is favored to represent artifact when compared with coronal sequences; however, an underlying lesion is difficult to exclude entirely. Consider direct visualization. ATED BY: FRANTZ SALAS DO DICTATED DATE/TIME: 09/19/24 1415 Condition at Discharge: Stable Final Diagnosis/Problems List Choledocholithiasis New onset diabetes morbid obesity transaminitis Discharge Disposition: Acute Care Facility Discharge Instruct/Medications Diet: See Comment Diet comment: clear fluid diet Activity: No Restrictions, As Tolerated Follow Up/Referral: 7 days Medications: Zosyn Discharge Statement: "Patient was advised to return to the ER or call 911 if any headaches, dizziness, shortness of breath, chest pain, abdominal pain, bleeding, fevers, or worsening of medical condition. Patient was counseled about treatment plan, medications, possible side effects, patientverbalized understanding. All questions were answered to the best of my ability. This discharge took greater then 30 minutes in planning, reviewing documentation, counseling the patient, and discussing with other team members." ASSESSMENT ASSESSMENT Assessment Choledocholithiasis Date of Service: Sep 20, 2024 Billing Provider: JOB HARDING MD Common Visit Codes: 30561-VVT/OBS DISCH DAY >30min CRISTOFER CENTENO RESIDENT Sep 20, 2024 17:08 JOB HARDING MD Sep 22, 2024 10:26
[2024-09-20 21:00] VITALS: BP 136/75; PULSE 62; RESP 17; TEMP 98; O2SAT 94
[2024-09-21 05:00] VITALS: BP 109/65; PULSE 75; RESP 17; TEMP 97.9; O2SAT 94
[2024-09-21 08:00] VITALS: PULSE 71
[2024-09-21 09:04] VITALS: BP 111/66; PULSE 71; RESP 20; TEMP 98.1; O2SAT 93
[2024-09-21 12:47] VITALS: BP 124/87; PULSE 62; RESP 20; TEMP 97.6; O2SAT 95
--- NOTE | 2024-09-21 13:57 | DVHPN2 ---
Progress Note Date Seen: Sep 21, 2024 Has the PT tested + for MRSA If YES, has PT been informed?: No Medical Necessity Reason Pt with a Central, PICC or Fol: No Subjective Review of Systems Feels well. No complaints. Objective vital signs Vital Sign Date Time Temp Pulse Resp B/P (MAP) Pulse Ox O2 Delivery O2 Flow Rate FiO2 09/21/24 12:47 97.6 62 20 124/87 (99) 95 97.6 09/21/24 08:00 Room Air* 0 21 Total Intake and Output 09/20/24 09/20/24 09/21/24 15:00 23:00 07:00 Intake Total 100 ml 976 ml 700 ml Balance 100 ml 976 ml 700 ml medications Current Medications Medications Dose Ordered Sig/Vianney Route Start Time Stop Time Status Last Admin Dose Admin Acetaminophen 650 mg Q6HP PRN PO 09/18/24 01:45 09/20/24 13:11 650 MG Morphine Sulfate 2 mg Q4HPRN PRN IV 09/18/24 01:45 09/20/24 13:51 2 MG Nitroglycerin 0.4 mg Q5MINP PRN SL 09/18/24 01:45 Morphine Sulfate 2 mg Q30M PRN IV 09/18/24 01:45 Ondansetron HCl 4 mg Q4HPRN PRN IV 09/18/24 01:45 09/20/24 13:50 4 MG Piperacillin Sod/ Tazobactam Sod 100 ml @ 25 mls/hr Q6HR IV 09/18/24 12:00 09/21/24 12:06 25 MLS/HR Pneumococcal Polyvalent Vaccine 25 mcg ONCE IM 09/18/24 05:45 Cancel Lactated Ringer's 1,000 ml @ 100 mls/hr Q10H IV 09/18/24 06:30 09/19/24 21:40 100 MLS/HR Diagnostic Test (Pha) 1 strip ACHS 09/18/24 07:00 09/21/24 11:34 1 STRIP Insulin Human Regular ACHS SC 09/18/24 07:00 09/21/24 11:30 2 UNITS Dextrose 50 ml UD PRN IV 09/18/24 06:45 Examination AFVSS. Unchanged laboratory and microbiology Laboratory Tests 09/20/24 05:52 09/19/24 05:27 Test 09/20/24 05:52 Range/Units Serum Glucose 76 74-106 mg/dL Microbiology Date/Time Source Procedure Growth Status 09/18/24 23:22 Nose MRSA Screen - Final Complete 09/18/24 02:56 Blood Blood Culture - Preliminary NO GROWTH AFTER 72 HOURS OF INCUBATION. Resulted Labs and/or images reviewed: Labs reviewed by me Problem List/Assessment/Plan Problems(with codes): (1) Choledocholithiasis (2) Elevated LFTs Problem List/Assessment/Plan MRCP positive for choledocholithiasis. Incidental finding of possible GB remnant. Pt made aware. Pending Txfr to [facility] for ERCP. Continue empiric antibiotic, coverage against cholangitis. DVT and GI prophylaxis. Continue low fat diet and assess tolerance and symptoms. If becomes symptomatic, resume CLD. No surgical intervention is indicated or warranted at this time. No need for daily blood draws unless clinically warranted. Plan discussed with: Patient, Spouse DEBI ENRIQUE MD Sep 21, 2024 13:57
[2024-09-21 17:00] VITALS: BP 139/72; PULSE 70; RESP 20; TEMP 98.1; O2SAT 94
[2024-09-21 17:18] VITALS: BP 139/72; PULSE 70; RESP 20; TEMP 98.7; O2SAT 94
--- NOTE | 2024-09-21 20:13 | DVHPNRES ---
Progress Note Date Seen: Sep 21, 2024 Resident Creating Document: CRISTOFER CENTENO RESIDENT Has the PT tested + for MRSA If YES, has PT been informed?: No Medical Necessity Reason Pt with a Central, PICC or Fol: No Medical Necessity Reason pending transfer to [facility] for ERCP Subjective Review of Systems Patient was seen and examined at bedside. She stated improvement on abdominal pain, denied any nausea, vomiting, chest pain, shortness of breath. MRCP positive for choledocholithiasis Pending transfer to [facility] for ERCP Objective vital signs Vital Sign Date Time Temp Pulse Resp B/P (MAP) Pulse Ox O2 Delivery O2 Flow Rate FiO2 09/21/24 19:53 Room Air* 0 21 09/21/24 17:18 98.7 70 20 94 09/21/24 17:00 139/72 (94) Total Intake and Output 09/20/24 09/20/24 09/21/24 15:00 23:00 07:00 Intake Total 100 ml 976 ml 700 ml Balance 100 ml 976 ml 700 ml medications Current Medications Medications Dose Ordered Sig/Vianney Route Start Time Stop Time Status Last Admin Dose Admin Acetaminophen 650 mg Q6HP PRN PO 09/18/24 01:45 09/20/24 13:11 650 MG Morphine Sulfate 2 mg Q4HPRN PRN IV 09/18/24 01:45 09/20/24 13:51 2 MG Nitroglycerin 0.4 mg Q5MINP PRN SL 09/18/24 01:45 Morphine Sulfate 2 mg Q30M PRN IV 09/18/24 01:45 Ondansetron HCl 4 mg Q4HPRN PRN IV 09/18/24 01:45 09/20/24 13:50 4 MG Piperacillin Sod/ Tazobactam Sod 100 ml @ 25 mls/hr Q6HR IV 09/18/24 12:00 09/21/24 17:52 25 MLS/HR Pneumococcal Polyvalent Vaccine 25 mcg ONCE IM 09/18/24 05:45 Cancel Lactated Ringer's 1,000 ml @ 100 mls/hr Q10H IV 09/18/24 06:30 09/19/24 21:40 100 MLS/HR Diagnostic Test (Pha) 1 strip ACHS 09/18/24 07:00 09/21/24 17:00 1 STRIP Insulin Human Regular ACHS SC 09/18/24 07:00 09/21/24 11:30 2 UNITS Dextrose 50 ml UD PRN IV 09/18/24 06:45 Examination General: Awake, alert, comfortable appearing, in no acute distress. HEENT: Head is normocephalic and atraumatic. Pupils are equal, round, and reactive to light. Extraocular muscles are intact. No nasal discharge. No facial trauma. Intraoral exam shows moist mucous membranes with no tonsillar enlargement or exudate. Neck: Supple with no cervical lymphadenopathy No meningismus. No goiter. Heart: Regular rate without murmur, rub, or gallop. Lungs: Equal breath sounds bilaterally with no wheezing, rales, or rhonchi. There is no chest wall tenderness or instability. Abdomen: No external sign of injury. Bowel sounds are present. Abdomen is soft, mildly tender. No rebound, no guarding, no rigidity. There are no palpable masses.surgical scar in the right upper quadrant from the cholecystectomy, distend, BS+, Extremities: Strong peripheral pulses. There is no clubbing, no cyanosis, and no edema. Skin: No rash. Neurologic: Cranial nerves II-XII intact without motor, sensory, or cerebellar deficit, no asterixis. laboratory and microbiology Laboratory Tests 09/20/24 05:52 09/19/24 05:27 Test 09/20/24 05:52 Range/Units Serum Glucose 76 74-106 mg/dL Microbiology Date/Time Source Procedure Growth Status 09/18/24 23:22 Nose MRSA Screen - Final Complete 09/18/24 02:56 Blood Blood Culture - Preliminary NO GROWTH AFTER 72 HOURS OF INCUBATION. Resulted Problem List/Assessment/Plan Problem List/Assessment/Plan Right upper quadrant pain with transaminitis --> History of cholecystectomy in 2019 -->Drea 2.4-->2.5 --> MRCP: positive of choledocholithiasis --> Pending transfer to [facility] for ERCP --> Received a call from [facility] ( [facility]) today for a possible transfer there today if accepted --> Continue low fat diet and assess tolerance and symptoms ?? Possibile Cholangitis --> But no fevers, wbc --> elevated liver enzymes --> Continue Zosyn for now New onset prediabetes --> hgba1c: 6.5 --> Lifestyle modification Morbide obesity, BMI 46.1 --->patient was counseled about weight reduction, healthy diet, physical activity Code status: Full Goal of care discussed for more than 35 minutes Case and plan discussed with Dr. Martin Plan discussed with: Patient, Spouse Date of Service: Sep 21, 2024 Billing Provider: JOB HARDING MD Common Visit Codes: 71685-[id number] INP/OBS CARE(HIGH) CRISTOFER CENTENO RESIDENT Sep 21, 2024 20:13 JOB HARDING MD Sep 22, 2024 10:08
--- NOTE | 2024-09-22 17:09 | DVH ---
Examination: ABDL CLINICAL INDICATION: Ultrasound of the hepat obiliary system to rule out pancreatitis ;/obstruction of the common bile duct/cirrhosis of liver COMPARISON: None. TECHNIQUE: Using real-time ultrasonic imaging, the abdomen was examined. FINDINGS: Liver: Mild hepatomegaly noted, measuring 18.1 cm. Increased echotexture consistent with fatty infilt ration of the liver. Smooth border with no evidence of intrahepatic ductal dilatation. Hepatic veins are patent, and the main portal vein shows normal hepatopetal flow. Post cholecystectomy status. Common bile duct measures 3.9 mm, which is normal. Pancreas is not visualized obscured by bowel gas. Right Kidney: Normal morphology and cortical echogenicity. No evidence of renal stones, masses, or hy dronephrosis. Right kidney measures 11.3 cm in length. IMPRESSION: 1. Mild hepatomegaly (18.1 cm) with increased echotexture, consistent with fatty infiltration of the liver. 2. Post cholecystectomy status. common bile duct diameter (3.9 mm). 3. Right kidney measures 11.3 cm in length with no evidence of renal calculus or hydronephrosis. Electronically Signed 09/18/2024 04:32 Janki Perez
== END 2024-09-21 21:50 | disposition short-term general hospital (02) | DRG 445 ==
LOC: CENTRAL 00:05
PROVIDERS: ADMIT Student in an Organized Health Care Education/Training Program; ATTEND Student in an Organized Health Care Education/Training Program
DX: K80.50 Calculus of bile duct without cholangitis or cholecystitis without obstruction (principal); Z68.42 Body mass index [BMI] 45.0-49.9, adult; R74.01 Elevation of levels of liver transaminase levels; E11.9 Type 2 diabetes mellitus without complications; E66.01 Morbid (severe) obesity due to excess calories; Z90.49 Acquired absence of other specified parts of digestive tract; Z80.8 Family history of malignant neoplasm of other organs or systems
CPT/HCPCS: 36415; 74183; 76705; 80053; 80076; 80307; 80320; 81001; 82248; 82962; 83036; 83605; 83690; 83735; 84443; 85014; 85018; 85025; 85652; 86141; 86704; 86706; 86708; 86803; 87040; 87081; 87340; 96365; 96375; G0378; J1815; J2405; J2470; J2543